=== PATIENT | male | born 1955 | race African-American/Black ===

== ENCOUNTER 2016-08-04 13:56 | Emergency (ER) | payer MEDICARE, BC ==
[~2016-08-04] VITALS: Ht 167.6 cm; Wt 86.2 kg
[~2016-08-04 13:56] MED LIST: ATOR20TA PO; CARV6.252 PO; CLOP75TA27 PO; CYCL5TAB PO; ENOX40DI SQ; GABA-586 PO; GABA600T2 PO; HYDR-2678 PO; ISOS30TA PO; LISI-334 PO; MIRT30TA PO; OLAN7.5T3 PO; OMEG500C3 PO; OXYC10TA PO; PANT40TA3 PO; RIVA20TA2 PO; WARF5TAB PO; WARF5TAB7 PO
[2016-08-04 14:57] VITALS: BP 148/95
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
--- NOTE | 2016-08-04 16:08 | RAD ---
Portable left knee, 3 views, 08/04/2016: History: Increasing knee pain Since 10/11/2004 there has been a below the knee amputation. There is patchy bony demineralization. There is an intramedullary josiane with multiple screws transfixing an old healed distal femoral fracture. No acute fracture or destructive bony lesion is seen. There is moderate subcutaneous edema. Arterial calcifications are present. IMPRESSION: 1. Demineralization. 2. Postsurgical changes as described above. 3. No acute bony abnormality is detected.
[2016-08-04] MEDS ORDERED: DICL75TA PO (16:15)
== END 2016-08-04 16:40 | disposition home or self-care (01) ==
LOC: ER 13:56
DX: M25.562 Pain in left knee (principal); I25.2 Old myocardial infarction; I10 Essential (primary) hypertension; Z88.0 Allergy status to penicillin; Z88.8 Allergy status to other drugs, medicaments and biological substances
CPT/HCPCS: 73562; 99284

== ENCOUNTER 2017-04-22 09:52 | Emergency (ER) | payer MEDICARE, BC ==
[2017-04-22] MEDS: ONDANSETRON ODT 4 MG TAB.RAPDIS. PO (10:55)
[2017-04-22] MEDS: oxyCODONE IR 5 MG TABLET PO (10:56)
[2017-04-22 12:37] LABS: ADD MAN DIFF? NO
[2017-04-22 12:39] LABS: BASO # 0.1 x10^3/uL (0.0-0.2); BASO % 1 % (0-3); EOS % 1 % (0-3); HEMATOCRIT 42.1 % (39.0-53.0); HEMOGLOBIN 14.2 g/dL (13.0-17.5); LYMPH # 1.7 x10^3/uL (1.0-4.8); LYMPH % 29 % (24-48); MEAN CORPUSCULAR HEMOGLOBIN 32 pg (25-35); MEAN CORPUSCULAR HGB CONC 34 g/dL (31-37); MEAN CORPUSCULAR VOLUME 96 fL (79-100); MONO % 9 % (0-9); NEUT % 60 % (31-73); PLATELET COUNT 160 x10^3/uL (140-400); RED BLOOD COUNT 4.39 x10^6/uL (4.30-5.70); RED CELL DISTRIBUTION WIDTH 13.6 % (11.5-14.5); WHITE BLOOD COUNT 5.8 x10^3/uL (4.0-11.0)
[2017-04-22 12:51] LABS: INR 2.3 (0.8-1.1); PROTHROMBIN TIME PATIENT 23.8 SEC (11.7-14.0)
[2017-04-22 13:02] LABS: ANION GAP 10 (6-14); BLOOD UREA NITROGEN 11 mg/dL (8-26); BUN/CREATININE RATIO 14 (6-20); CALCIUM 8.1 mg/dL (8.5-10.1); CARBON DIOXIDE 26 mmol/L (21-32); CHLORIDE 106 mmol/L (98-107); CREATININE 0.8 mg/dL (0.7-1.3); GFR 118.9; GLUCOSE 103 mg/dL (70-99); POTASSIUM 3.6 mmol/L (3.5-5.1); SODIUM 142 mmol/L (136-145)
[2017-04-22 13:05] LABS: ALBUMIN 3.5 g/dL (3.4-5.0); ALBUMIN/GLOBULIN RATIO 0.9 (1.0-1.7); ALK PHOS 94 U/L (46-116); ALT (SGPT) 19 U/L (16-63); AST (SGOT) 12 U/L (15-37); TOTAL BILIRUBIN 0.4 mg/dL (0.2-1.0); TOTAL PROTEIN 7.2 g/dL (6.4-8.2)
[2017-04-22 13:14] LABS: BILIRUBIN,URINE NEGATIVE (NEG); GLUCOSE,URINE NEGATIVE (NEG); NITRITE,URINE NEGATIVE (NEG); PH,URINE 7.5; PROTEIN,URINE NEGATIVE (NEG-TRACE)
[2017-04-22 13:16] LABS: BACTERIA,URINE 0 /HPF (0-FEW); RBC,URINE 0 /HPF (0-2); WBC,URINE 0 /HPF (0-4)
== END 2017-04-22 14:57 | disposition home or self-care (01) ==
LOC: ER 09:52
DX: R10.9 Unspecified abdominal pain (principal); M54.6 Pain in thoracic spine; G89.29 Other chronic pain; I11.9 Hypertensive heart disease without heart failure; I25.2 Old myocardial infarction; Z89.512 Acquired absence of left leg below knee; Z95.5 Presence of coronary angioplasty implant and graft; Z88.0 Allergy status to penicillin; Z88.8 Allergy status to other drugs, medicaments and biological substances
CPT/HCPCS: 36415; 74176; 80053; 81001; 85025; 85610; 99285-25; Q0162